=== PATIENT | female | born 1995 | race Asian ===

== ENCOUNTER → 2024-03-12 | Outpatient (CLI) | payer BC, SELFPAY | END | disposition home or self-care (01) | LOC: LABSPEC 15:18 | PROVIDERS: Referring Provider Nurse Practitioner Family; Visit Provider Nurse Practitioner Family | DX: L02.32 Furuncle of buttock (principal); L02.425 Furuncle of right lower limb; L02.426 Furuncle of left lower limb; L02.221 Furuncle of abdominal wall; L02.421 Furuncle of right axilla; L02.422 Furuncle of left axilla | CPT/HCPCS: 87070; 87077; 87186; 87205 ==